=== PATIENT | male | born 1965 | race Caucasian/White ===

== ENCOUNTER 2019-08-24 10:05 | Emergency (ER) | payer MEDICARE, OTHER ==
[~2019-08-24] VITALS: Ht 175.3 cm; Wt 99.8 kg
[~2019-08-24 10:05] MED LIST: ALBU90OI INH; ASPI81EC; ASPI81EC PO; ATELVIA; AZIT250 PO; BACTRIM PO; CALCA500CH PO; CALCAVITD PO; CALCIUM CITRATE +D PO; CARV25 PO; CARV3.125; CEFD300 PO; CEPH500 PO; CLON.1; CLON.1 PO; DOCU100 PO; DOXA1 PO; FAMO20 PO; FERR325 PO; FURO40; HYDACE5 PO; IBAN2.5 PO; INSUASPI; INSULANI SQ; IRON150C PO; K-PHOS; LEVFLO250 PO; MAGOXI400 PO; MULVITMINF PO; MVI; MYCO250 PO; MYCOPHENOLATE PO; MYCOPHENOLIC ACID; NIFE30ER PO; NIFE60ER; NIFE60ER PO; OLME20; OMEP20ER PO; OXYC5 PO; PARI1 PO; POTPHO PO; PRED5 PO; SEPTRA PO; SULTRIDS PO; SULTRISS PO; TACR1 PO; VALGANCICLOVIR PO; VALS80 PO; [UNRECOGNIZED DRUG - REMARK]
[2019-08-24 10:57] LABS: BASOPHILS ABSOLUTE AUTO 0.03 K/mm3 (0.00-0.23); BASOPHILS PERCENT AUTO 0 % (0-2); EOSINOPHILS ABSOLUTE AUTO 0.06 K/mm3 (0.00-0.68); EOSINOPHILS PERCENT AUTO 0 % (0-6); Hematocrit 52.1 % (37.0-53.0); Hemoglobin 16.9 g/dL (13.5-17.5); IMMATURE GRAN ABSOLUTE AUTO 0.08 K/mm3 (0.00-0.10); IMMATURE GRAN PERCENT AUTO 1 % (0-1); LYMPHOCYTES ABSOLUTE AUTO 1.62 K/mm3 (0.84-5.20); LYMPHOCYTES PERCENT AUTO 11 % (21-46); MONOCYTES ABSOLUTE AUTO 0.88 K/mm3 (0.16-1.47); MONOCYTES PERCENT AUTO 6 % (4-13); Mean Corpuscular HGB 25.9 pg (26.0-34.0); Mean Corpuscular HGB Conc 32.4 g/dL (31.5-36.5); Mean Corpuscular Volume 80 fL (80-100); Mean Platelet Volume 10.1 fL (9.1-12.4); NEUTROPHILS PERCENT AUTO 83 % (41-73); Platelet Count 240 K/mm3 (150-400); RDW Coefficient Variation 14.3 % (11.7-14.2); RDW Standard Deviation 38.9 fL (35.1-46.3); Red Blood Cell Count 6.52 M/mm3 (4.30-5.90); White Blood Cell Count 15.37 K/mm3 (4.00-11.30)
[2019-08-24 11:17] LABS: Alanine Aminotransfer (ALT/SGP 34 U/L (12-78); Albumin/Globulin Ratio 0.9 (0.8-1.8); Alk Phos 93 U/L (50-136); Anion Gap 5 mmol/L (6-16); Aspartate Aminotrans (AST/SGOT 13 U/L (12-37); Bilirubin, Total 0.8 mg/dL (0.1-1.0); Blood Urea Nitrogen 17 mg/dL (8-24); Bun/Creatinine Ratio 13.8 (12.0-20.0); CO2, Blood 25 mmol/L (21-32); Calcium, Blood 9.2 mg/dL (8.5-10.1); Chloride, Blood 105 mmol/L (98-108); Creatinine, Blood 1.23 mg/dL (0.60-1.20); Globulin, Blood 4.3 g/dL (2.2-4.0); Glomerular Filtration Rate >60 (60-); Glucose, Blood 128 mg/dL (70-99); Potassium, Blood 3.9 mmol/L (3.5-5.5); Sodium, Blood 135 mmol/L (136-145); Total Protein, Blood 8.3 g/dL (6.4-8.2)
[2019-08-24] MEDS ORDERED: Cleocin HCl150 MG PO (12:05)
== END 2019-08-24 12:29 | disposition home or self-care (01) ==
LOC: ER 10:05
PROVIDERS: Emergency Medicine
DX: E11.621 Type 2 diabetes mellitus with foot ulcer (principal); L97.519 Non-pressure chronic ulcer of other part of right foot with unspecified severity; L03.115 Cellulitis of right lower limb; Z94.0 Kidney transplant status; Z88.1 Allergy status to other antibiotic agents
CPT/HCPCS: 36415; 73630; 80053; 83605; 85025; 87070; 87075; 87077; 87186; 87205; 96361; 96365; 99283-25; J7030

== ENCOUNTER 2020-10-09 13:08 | Emergency (ER) | payer MEDICARE, OTHER ==
[~2020-10-09] VITALS: Ht 175.3 cm; Wt 108.9 kg
[~2020-10-09 13:08] MED LIST changes: +Cleocin HCl150 MG PO; -MYCOPHENOLIC ACID
[2020-10-09] MEDS ORDERED: NEBI10 PO (13:45)
[2020-10-09] MEDS ORDERED: INSULIN LI100 UNIT/5 (13:45)
[2020-10-09 14:26] LABS: BASOPHILS ABSOLUTE AUTO 0.02 K/mm3 (0.00-0.23); BASOPHILS PERCENT AUTO 0 % (0-2); EOSINOPHILS ABSOLUTE AUTO 0.16 K/mm3 (0.00-0.68); EOSINOPHILS PERCENT AUTO 2 % (0-6); Hematocrit 44.8 % (37.0-53.0); Hemoglobin 14.8 g/dL (13.5-17.5); IMMATURE GRAN ABSOLUTE AUTO 0.07 K/mm3 (0.00-0.10); IMMATURE GRAN PERCENT AUTO 1 % (0-1); LYMPHOCYTES ABSOLUTE AUTO 2.22 K/mm3 (0.84-5.20); LYMPHOCYTES PERCENT AUTO 30 % (21-46); MONOCYTES ABSOLUTE AUTO 0.55 K/mm3 (0.16-1.47); MONOCYTES PERCENT AUTO 7 % (4-13); Mean Corpuscular HGB 27.4 pg (26.0-34.0); Mean Corpuscular Volume 83 fL (80-100); Mean Platelet Volume 10.1 fL (9.1-12.4); NEUTROPHILS ABSOLUTE AUTO 4.41 K/mm3 (1.96-9.15); NEUTROPHILS PERCENT AUTO 59 % (41-73); Platelet Count 274 K/mm3 (150-400); RDW Coefficient Variation 12.7 % (11.7-14.2); RDW Standard Deviation 38.2 fL (35.1-46.3); Red Blood Cell Count 5.41 M/mm3 (4.30-5.90); White Blood Cell Count 7.43 K/mm3 (4.00-11.30)
[2020-10-09 14:35] LABS: Alanine Aminotransfer (ALT/SGP 35 U/L (12-78); Albumin, Blood 3.7 g/dL (3.4-5.0); Albumin/Globulin Ratio 0.8 (0.8-1.8); Alk Phos 100 U/L (50-136); Anion Gap 5 mmol/L (6-16); Aspartate Aminotrans (AST/SGOT 9 U/L (12-37); Bilirubin, Total 0.4 mg/dL (0.1-1.0); Blood Urea Nitrogen 19 mg/dL (8-24); Bun/Creatinine Ratio 16.1 (12.0-20.0); CO2, Blood 25 mmol/L (21-32); Calcium, Blood 9.2 mg/dL (8.5-10.1); Chloride, Blood 108 mmol/L (98-108); Creatinine, Blood 1.18 mg/dL (0.60-1.20); Globulin, Blood 4.5 g/dL (2.2-4.0); Glomerular Filtration Rate >60 (60-); Glucose, Blood 106 mg/dL (70-99); Potassium, Blood 4.2 mmol/L (3.5-5.5); Sodium, Blood 138 mmol/L (136-145); Total Protein, Blood 8.2 g/dL (6.4-8.2)
[2020-10-09] MEDS ORDERED: AMOX-CLAV 875-1 EAC5 PO (15:04)
[2020-10-09] MEDS ORDERED: AMOCLA875 PO (15:23)
[2020-10-09] MEDS ORDERED: Bactrim Ds Tab1 EACH PO (15:23)
[2020-10-09] MEDS ORDERED: PRED5 PO (15:28)
[2020-10-09] MEDS ORDERED: TACR1 PO (15:28)
[2020-10-09] MEDS ORDERED: VALS80 PO (15:29)
[2020-10-09] MEDS ORDERED: MYCOPHENOLIC ACID (15:29)
[2020-10-09] MEDS ORDERED: OXYC5 PO (15:29)
[2020-10-09] MEDS ORDERED: MYCOPHENOLIC A360 M1 PO (15:30)
[2020-12-15] MEDS ORDERED: Aspir 8181 MG PO (00:43)
[2020-12-15] MEDS ORDERED: TUMS500 MG PO (00:44)
== END 2020-10-09 16:33 | disposition home or self-care (01) ==
LOC: ER 13:08
PROVIDERS: Physician Assistant
DX: E11.621 Type 2 diabetes mellitus with foot ulcer (principal); L97.421 Non-pressure chronic ulcer of left heel and midfoot limited to breakdown of skin; E11.69 Type 2 diabetes mellitus with other specified complication; M86.9 Osteomyelitis, unspecified; L03.116 Cellulitis of left lower limb; E11.319 Type 2 diabetes mellitus with unspecified diabetic retinopathy without macular edema; Z87.891 Personal history of nicotine dependence; Z88.1 Allergy status to other antibiotic agents; Z88.8 Allergy status to other drugs, medicaments and biological substances; Z79.4 Long term (current) use of insulin; Z79.52 Long term (current) use of systemic steroids; Z79.899 Other long term (current) drug therapy
CPT/HCPCS: 36415; 80053; 85025; 87070; 87075; 87077; 87147; 87186; 87205; 96365; 96367; 99283-25; J0692

== ENCOUNTER → 2024-09-05 | Outpatient (CLI) | payer MEDICARE, OTHER ==
[~2024-09-05] MED LIST changes: +AMOCLA875 PO; +AMOX-CLAV 875-1 EAC5 PO; +Aspir 8181 MG PO; +Bactrim Ds Tab1 EACH PO; +INSULIN LI100 UNIT/5; +MYCOPHENOLIC A360 M1 PO; +MYCOPHENOLIC ACID; +NEBI10 PO; +TUMS500 MG PO
[2024-09-05 13:39] LABS: Creatinine Urine 39.7 mg/dL (27.00-270.00); Protein, Urine Quantitative 100.1 mg/dL (0.0-11.9)
== END ==
LOC: LAB SHORT 08:10 → LAB 08:10
PROVIDERS: Internal Medicine Nephrology
DX: E78.00 Pure hypercholesterolemia, unspecified (principal); E10.29 Type 1 diabetes mellitus with other diabetic kidney complication; E10.22 Type 1 diabetes mellitus with diabetic chronic kidney disease; N18.30 Chronic kidney disease, stage 3 unspecified; Z94.0 Kidney transplant status; N25.81 Secondary hyperparathyroidism of renal origin; E55.9 Vitamin D deficiency, unspecified; N40.1 Benign prostatic hyperplasia with lower urinary tract symptoms; R76.9 Abnormal immunological finding in serum, unspecified; R94.6 Abnormal results of thyroid function studies; R94.5 Abnormal results of liver function studies
CPT/HCPCS: 82043; 82570; 84156

== ENCOUNTER 2024-12-06 01:18 | Inpatient (IN) | payer MEDICARE, OTHER ==
[~2024-12-06] VITALS: Ht 175.3 cm; Wt 116.8 kg
[2024-12-06] VITALS (16 sets, daily range): BP systolic 143–196; BP diastolic 72–112
[2024-12-06 01:52] LABS: BASOPHILS ABSOLUTE AUTO 0.03 K/mm3 (0.00-0.23); BASOPHILS PERCENT AUTO 0 % (0-2); EOSINOPHILS ABSOLUTE AUTO 0.22 K/mm3 (0.00-0.68); EOSINOPHILS PERCENT AUTO 2 % (0-6); Hematocrit 43.2 % (37.0-53.0); Hemoglobin 14.6 g/dL (13.5-17.5); IMMATURE GRAN ABSOLUTE AUTO 0.17 K/mm3 (0.00-0.10); IMMATURE GRAN PERCENT AUTO 1 % (0-1); LYMPHOCYTES ABSOLUTE AUTO 2.32 K/mm3 (0.84-5.20); LYMPHOCYTES PERCENT AUTO 19 % (21-46); MONOCYTES PERCENT AUTO 8 % (4-13); Mean Corpuscular HGB 28.5 pg (26.0-34.0); Mean Corpuscular HGB Conc 33.8 g/dL (31.5-36.5); Mean Corpuscular Volume 84 fL (80-100); Mean Platelet Volume 10.1 fL (9.1-12.4); NEUTROPHILS ABSOLUTE AUTO 8.48 K/mm3 (1.96-9.15); NEUTROPHILS PERCENT AUTO 69 % (41-73); Platelet Count 346 K/mm3 (150-400); RDW Coefficient Variation 12.2 % (11.7-14.2); RDW Standard Deviation 37.1 fL (35.1-46.3); Red Blood Cell Count 5.12 M/mm3 (4.30-5.90); White Blood Cell Count 12.22 K/mm3 (4.00-11.30)
[2024-12-06 02:07] LABS: Albumin/Globulin Ratio 0.7 (0.8-1.8); Bilirubin, Total 0.2 mg/dL (0.1-1.0); Bun/Creatinine Ratio 21.9 (12.0-20.0); Creatinine, Blood 1.55 mg/dL (0.60-1.20); Globulin, Blood 4.4 g/dL (2.2-4.0); Potassium, Blood 4.9 mmol/L (3.5-5.5); Total Protein, Blood 7.4 g/dL (6.4-8.2)
[2024-12-06] MEDS ORDERED: Aspirin 81 MG Chew PO ONE (03:20)
[2024-12-06 03:47] LABS: D-Dimer, Quantitative 1.15 mg/L FEU (0.00-0.52)
[2024-12-06 04:35] LABS: Anti-Xa UFH, PHA Monitoring <0.10 IU/mL; International Normalized Ratio 1.05; Prothrombin Time Results 11.2 Sec (9.7-11.5)
[2024-12-06] MEDS ORDERED: Heparin Sodium,Porcine/0.5 NS 500 ML IV SCH (04:50)
[2024-12-06] MEDS ORDERED: Diltiazem HCL 125MG/D5 125ML IV SCH (05:45)
[2024-12-06] MEDS ORDERED: dilTIAZem HCL 125 MG in Dextrose 5% 100 ML IV SCH (06:00)
[2024-12-06] MEDS ORDERED: Carvedilol 6.25 MG Tab PO SCH ×2 (08:00→09:30)
[2024-12-06] MEDS ORDERED: Losartan Potassium 25 MG Tab PO SCH (09:00)
[2024-12-06] MEDS ORDERED: PredniSONE 5 MG Tab PO SCH (09:00)
[2024-12-06] MEDS ORDERED: MYCOPHENOLATE 360 MG PO SCH (09:00)
[2024-12-06] MEDS ORDERED: NIFEdipine 30 MG TabCR PO SCH (09:00)
[2024-12-06 09:52] LABS: Magnesium, Blood 2.3 mg/dL (1.6-2.4); Thyroid Stimulating Hormone 1.1 uIU/mL (0.360-4.800)
[2024-12-06] MEDS ORDERED: NS 1,000 ML IV ONE (10:40)
[2024-12-06] MEDS ORDERED: Ondansetron 4 MG TAB PO PRN (10:40)
[2024-12-06] MEDS ORDERED: Clopidogrel Bisulfate 75 MG Tab PO ONE (11:55)
[2024-12-06] MEDS ORDERED: Verapamil HCL 2.5 MG/ML 2ML Injection ONE (11:55)
[2024-12-06] MEDS ORDERED: NS 2,000 ML IV ONE (11:56)
[2024-12-06] MEDS ORDERED: Nitroglycerin 2 MG/20 ML BTL ONE (11:56)
[2024-12-06] MEDS ORDERED: Heparin Sodium 1000 Units/ML 10ML MDV ONE (11:56)
[2024-12-06] MEDS ORDERED: NS 250 ML IV ONE (11:57)
[2024-12-06] MEDS ORDERED: Tirofiban HCL Monohydrate 3.75 MG/15 ML Vial ONE (11:57)
[2024-12-06] MEDS ORDERED: FentaNYL Citrate 50 MCG/ML 2 ML Injection ONE (11:57)
[2024-12-06] MEDS ORDERED: Midazolam HCl 1MG / ML 2ML Vial ONE (11:57)
[2024-12-06] MEDS ORDERED: Atropine Sulfate 0.1 MG/ML 10ML SYR ONE (12:17)
[2024-12-06] MEDS ORDERED: Phenylephrine HCl 100 MCG/ML-NS 10MLSYR (1MG/10ML) ONE (12:17)
[2024-12-06] MEDS ORDERED: Ondansetron HCl 2 MG / ML 2ML Vial ONE (12:21)
[2024-12-06] MEDS ORDERED: Labetalol HCL 5 MG/ML 4ML Injection (Single Dose) ONE (12:24)
[2024-12-06] MEDS ORDERED: Labetalol HCL 5 MG/ML 4ML Injection (Single Dose) IV PRN (14:20)
[2024-12-06 14:24] LABS: BASOPHILS ABSOLUTE AUTO 0.04 K/mm3 (0.00-0.23); BASOPHILS PERCENT AUTO 0 % (0-2); EOSINOPHILS PERCENT AUTO 1 % (0-6); Hematocrit 42.5 % (37.0-53.0); Hemoglobin 14.2 g/dL (13.5-17.5); IMMATURE GRAN ABSOLUTE AUTO 0.08 K/mm3 (0.00-0.10); IMMATURE GRAN PERCENT AUTO 1 % (0-1); LYMPHOCYTES PERCENT AUTO 13 % (21-46); MONOCYTES PERCENT AUTO 5 % (4-13); Mean Corpuscular HGB 28.3 pg (26.0-34.0); Mean Corpuscular HGB Conc 33.4 g/dL (31.5-36.5); Mean Corpuscular Volume 85 fL (80-100); Mean Platelet Volume 10.4 fL (9.1-12.4); NEUTROPHILS ABSOLUTE AUTO 9.02 K/mm3 (1.96-9.15); NEUTROPHILS PERCENT AUTO 81 % (41-73); Platelet Count 368 K/mm3 (150-400); RDW Coefficient Variation 12.5 % (11.7-14.2); RDW Standard Deviation 38.1 fL (35.1-46.3); Red Blood Cell Count 5.02 M/mm3 (4.30-5.90); White Blood Cell Count 11.14 K/mm3 (4.00-11.30)
[2024-12-06 14:53] LABS: Albumin/Globulin Ratio 0.7 (0.8-1.8); Bilirubin, Total 0.5 mg/dL (0.1-1.0); Bun/Creatinine Ratio 22.1 (12.0-20.0); Calcium, Blood 9.1 mg/dL (8.5-10.1); Creatinine, Blood 1.45 mg/dL (0.60-1.20); Globulin, Blood 4.2 g/dL (2.2-4.0); Potassium, Blood 5.5 mmol/L (3.5-5.5); Total Protein, Blood 7.2 g/dL (6.4-8.2)
[2024-12-06] MEDS ORDERED: Acetylcysteine 200 MG/ML 4ML Vial PO SCH (14:55)
[2024-12-06] MEDS ORDERED: N-Acetylcysteine 600 MG CAP PO SCH (15:11)
[2024-12-06] MEDS ORDERED: NS 1,000 ML IV SCH (15:15)
[2024-12-06] MEDS ORDERED: Insulin Human Lispro 100 Units/ML 3ML Syringe SC SCH ×2 (16:30→18:00)
[2024-12-06] MEDS ORDERED: NIFEdipine 30 MG TabCR PO ONE (16:35)
[2024-12-06] MEDS ORDERED: Mycophenolate Sodium 180 MG Tablet DR PO SCH (21:00)
[2024-12-07] VITALS (8 sets, daily range): BP systolic 117–167; BP diastolic 61–85
[2024-12-07 04:13] LABS: Hematocrit 39.5 % (37.0-53.0); Hemoglobin 13.6 g/dL (13.5-17.5)
[2024-12-07 04:40] LABS: Albumin, Blood 2.8 g/dL (3.4-5.0); Anion Gap 11 mmol/L (3-11); Blood Urea Nitrogen 32 mg/dL (8-24); Bun/Creatinine Ratio 21.9 (12.0-20.0); CO2, Blood 21 mmol/L (21-32); Calcium, Blood 8.6 mg/dL (8.5-10.1); Chloride, Blood 104 mmol/L (98-108); Creatinine, Blood 1.46 mg/dL (0.60-1.20); Glomerular Filtration Rate 56 (60-); Glucose, Blood 239 mg/dL (70-99); Magnesium, Blood 2.1 mg/dL (1.6-2.4); Potassium, Blood 4.8 mmol/L (3.5-5.5); Sodium, Blood 131 mmol/L (136-145); Uric Acid, Blood 5.7 mg/dL (3.5-7.2)
[2024-12-07 04:57] LABS: Osmolality, Serum 292 mos/KG (275-300)
[2024-12-07 07:52] LABS: CHOL/HDL RATIO 3.6; Cholesterol 141 mg/dL (50-200); HDL Cholesterol 39 mg/dL (>39); LDL/HDL RATIO 1.9; Low Density Lipoprotein Chol 74 mg/dL (0-110); Triglycerides 139 mg/dL (30-160); Very Low Density Lipoprot Chol 27 mg/dL (6-32)
[2024-12-07] MEDS ORDERED: Carvedilol 6.25 MG Tab PO SCH (08:00)
[2024-12-07] MEDS ORDERED: Losartan Potassium 50 MG Tab PO SCH (09:00)
[2024-12-07] MEDS ORDERED: Clopidogrel Bisulfate 75 MG Tab PO SCH (09:00)
[2024-12-07] MEDS ORDERED: NIFEdipine 30 MG TabCR PO SCH (09:00)
[2024-12-07] MEDS ORDERED: Aspirin 81 MG Chew PO SCH (09:00)
[2024-12-07] MEDS ORDERED: Apixaban 5 MG Tab PO SCH (09:00)
[2024-12-07] MEDS ORDERED: Ezetimibe 10 MG Tab PO SCH (09:00)
[2024-12-07] MEDS ORDERED: ELIQUIS5 M2 PO (10:51)
[2024-12-07] MEDS ORDERED: CLOP75 PO (10:52)
[2024-12-07] MEDS ORDERED: Carvedilol12.5 MG PO (10:52)
[2024-12-07] MEDS ORDERED: EZET10 PO (10:52)
== END 2024-12-07 11:15 | disposition home or self-care (01) | DRG 322 ==
LOC: ER 01:18 → ERHOLD 01:19 → ICUE 10:51 → ERHOLD 10:51 → ICUE 13:52
PROVIDERS: Emergency Medicine; Family Medicine; Internal Medicine Nephrology; ADMIT Student in an Organized Health Care Education/Training Program
PROC: 027135Z Dilation of Coronary Artery, Two Arteries with Two Drug-eluting Intraluminal Devices, Percutaneous Approach (ICD-10-PCS; principal; 2024-12-06)
PROC: 4A023N7 Measurement of Cardiac Sampling and Pressure, Left Heart, Percutaneous Approach (ICD-10-PCS; 2024-12-06)
DX: I21.09 ST elevation (STEMI) myocardial infarction involving other coronary artery of anterior wall (principal); E87.1 Hypo-osmolality and hyponatremia; N17.9 Acute kidney failure, unspecified; Z94.0 Kidney transplant status; E87.20 Acidosis, unspecified; I50.32 Chronic diastolic (congestive) heart failure; I13.0 Hypertensive heart and chronic kidney disease with heart failure and stage 1 through stage 4 chronic kidney disease, or unspecified chronic kidney disease; E78.5 Hyperlipidemia, unspecified; I48.91 Unspecified atrial fibrillation; E11.319 Type 2 diabetes mellitus with unspecified diabetic retinopathy without macular edema; E66.9 Obesity, unspecified; E11.22 Type 2 diabetes mellitus with diabetic chronic kidney disease; N18.9 Chronic kidney disease, unspecified; E88.09 Other disorders of plasma-protein metabolism, not elsewhere classified; E11.51 Type 2 diabetes mellitus with diabetic peripheral angiopathy without gangrene; E21.3 Hyperparathyroidism, unspecified; Z96.0 Presence of urogenital implants; D63.1 Anemia in chronic kidney disease; I25.5 Ischemic cardiomyopathy; Z88.8 Allergy status to other drugs, medicaments and biological substances; Z88.1 Allergy status to other antibiotic agents; Z79.899 Other long term (current) drug therapy; Z79.52 Long term (current) use of systemic steroids; Z79.82 Long term (current) use of aspirin; Z89.422 Acquired absence of other left toe(s); Z87.19 Personal history of other diseases of the digestive system; Z87.891 Personal history of nicotine dependence; Z68.38 Body mass index [BMI] 38.0-38.9, adult; Z46.81 Encounter for fitting and adjustment of insulin pump; Z79.4 Long term (current) use of insulin; Z79.01 Long term (current) use of anticoagulants
CPT/HCPCS: 36415; 71046; 76937; 80053; 80061; 80069; 82947; 83735; 83930; 84443; 84484; 84550; 85014; 85018; 85025; 85347; 85379; 85520; 85610; 93005; 93010; 93458; 96365; 96366; 99152; 99153; 99285-25; A9270; C1725; C1769; C1874; C1887; C1894; C8929; C9600; C9601; C9606; J0461; J1644; J2250; J2371; J2405; J3010; J3246; J7030; J7050; J7512; Q9957; Q9967

== ENCOUNTER → 2025-06-08 | Outpatient (CLI) | payer MEDICARE, OTHER ==
[~2025-06-08] MED LIST changes: +CLOP75 PO; +Carvedilol12.5 MG PO; +ELIQUIS5 M2 PO; +EZET10 PO
[2025-06-08 16:21] LABS: Protein, Urine Quantitative 143.3 mg/dL (0.0-11.9)
[2025-06-08 16:34] LABS: Microalbumin, Urine Quant. 1130.0 mg/L (0.000-20.000)
== END | disposition home or self-care (01) ==
LOC: LAB SHORT 04:45 → LAB 04:45 → LAB FUT 05-24 07:25
PROVIDERS: Internal Medicine Nephrology
DX: N25.81 Secondary hyperparathyroidism of renal origin (principal); E55.9 Vitamin D deficiency, unspecified; E78.00 Pure hypercholesterolemia, unspecified; N40.1 Benign prostatic hyperplasia with lower urinary tract symptoms; D51.8 Other vitamin B12 deficiency anemias; D64.9 Anemia, unspecified; D52.8 Other folate deficiency anemias; D50.9 Iron deficiency anemia, unspecified; R76.9 Abnormal immunological finding in serum, unspecified; R94.5 Abnormal results of liver function studies; R94.6 Abnormal results of thyroid function studies; Z94.0 Kidney transplant status
CPT/HCPCS: 81050; 82043; 82570; 84156